=== PATIENT | female | born 1965 | race Caucasian/White ===

== ENCOUNTER 2016-07-02 21:41 | Emergency (ER) | payer BC, OTHER ==
[~2016-07-02] VITALS: Ht 162.6 cm; Wt 57.6 kg
--- OUTSIDE RECORDS SUMMARY | 2016-07-02 21:48 | XMS REPORT ---
Author Author SUDEEP LUU Organization [employer] Address Unknown Phone Unavailable Care Team Providers Care Molecular Geneticist Name Role Phone SUDEEP LUU CP Unavailable Allergies, Adverse Reactions, Alerts Substance Reaction Event Type N.K.D.A. Info Not Available Non Drug Allergy Problems Problem Type Condition Code Onset Dates Condition Status Assessment Strep throat J02.0 Active Assessment Sore throat J02.9 Active Problem Screening examination for pulmonary tuberculosis V74.1 Active Medications Medication Code System Code Instructions Start Date End Date Status Dosage Lisinopril [facility] [address]-47 20 MG Orally Once a day 1 tablet Hydrocodone-Acetaminophen [facility] [address]-59 7.5-325 MG Orally every 6 hrs 1 tablet as needed Amoxicillin [facility] [address]-83 500 MG Orally every 12 hrs 1 capsule Procedures Procedure Coding System Code Date STREP A ASSAY W/OPTIC CPT-4 86360 November 26, 2015 ROCEPHIN 1 GM (IM) CPT-4 J0696 November 26, 2015 Office Visit, Est Pt., Level 3 CPT-4 44594 November 26, 2015 THER/PROPH/DIAG INJ, SC/IM CPT-4 29702 November 26, 2015 Vital Signs Date/Time: November 26, 2015 Cardiac Monitoring Heart Rate 68 bpm Weight 128.6 lbs Height 64.5 in Blood Pressure Diastolic 82 mmHg Blood Pressure Systolic 132 mmHg Results No Known Results Summary Purpose [employer] Submission
[2016-07-02] MEDS ORDERED: HYDROcodone/APAP 7.5 MG/325 MG (LORTAB, LORCET PLUS) TABLET PO STA (22:51)
[2016-07-02] MEDS ORDERED: CYCLOBENZAPRINE 10 MG (FLEXERIL) TAB PO STA (22:51)
--- NOTE | 2016-07-02 22:57 | ED Upper Extremity ---
General Chief Complaint: Upper Extremity Stated Complaint: SHOULDER,NECK PAIN FROM FALL Nursing Triage Note: States she fell over a curb a week ago S[place] and landed on her rt shoulder and hip. Denies loc or head trauma. States Wed she started having severe rt shoulder pain and it increases with deep breath or movement. States she feels popping coming from sternum Nursing Sepsis Screen: No Definite Risk History of Present Illness Time seen by provider: 22:40 Initial Comments Evaluation for right shoulder, rib and sternum pain. She fell to 06/27/16 landing on her right shoulder. She initially had minimal pain and then yesterday the pain became very intense. She had ibuprofen at 1700. No head injury or loss of consciousness at the time of her fall Onset: other (5 days ago) Severity: moderate (pain 7 out of 10) Pain/Injury Location: right shoulder, right other (ribs, sternum) Method of Injury: fell Modifying Factors: Improves With Immobilization, Improves With Rest, Improves With Other (ibuprofen) Denies numbness, tingling or radicular symptoms in bilateral upper extremities Allergies and Home Medications Allergies Coded Allergies: No Known Drug Allergies (Unverified , 07/02/16) Home Medications Cyclobenzaprine HCl 10 Mg Tablet #15 10 MG PO Q8H PRN PRN SPASMS Prescribed by: PAOLO RODARTE on 07/02/162323 Hydrocodone/Acetaminophen 1 Each Tablet #20 1 EACH PO Q4H PRN PRN PAIN Prescribed by: PAOLO RODARTE on 07/02/162323 Constitutional: no symptoms reported chills EENTM: no symptoms reported see HPI Respiratory: see HPI other (pain in right ribs with deep breathing) Cardiovascular: no symptoms reported see HPI Gastrointestinal: no symptoms reported see HPI Genitourinary: no symptoms reported Musculoskeletal: see HPI joint pain (right shoulder) Skin: no symptoms reported see HPI Past Vzrdjcu-Hkblvw-Lttqkd Hx Patient Social History Alcohol Use: Occasionally Uses Recreational Drug Use: No Smoking Status: Current Everyday Smoker Type Used: Cigarettes 2nd Hand Smoke Exposure: No Recent Foreign Travel: No Contact w/Someone Who Travel: No Recent Infectious Disease Expo: No Recent Hopitalizations: No Immunizations Up To Date Tetanus Booster (TDap): Unknown Seasonal Allergies Seasonal Allergies: No Surgeries HX Surgeries: Yes Surgeries: Gallbladder Respiratory Hx Respiratory Disorders: No Cardiovascular Hx Cardiac Disorders: No Neurological Hx Neurological Disorders: No Reproductive System Hx Reproductive Disorders: No Genitourinary Hx Genitourinary Disorders: No Gastrointestinal Hx Gastrointestinal Disorders: Yes (GERD) Musculoskeletal Hx Musculoskeletal Disorders: Yes Musculoskeletal Disorders: Chronic Back Pain Endocrine Hx Endocrine Disorders: No HEENT HX ENT Disorders: No Cancer Hx Cancer: No Psychosocial Hx Psychiatric Problems: No Blood Transfusions Hx Blood Disorders: No Reviewed Nursing Assessment Reviewed/Agree w Nursing PMH: Yes Physical Exam Vital Signs Vital Sign - Last 12Hours 07/02/16 21:50 Temp 98.2 Pulse 95 Resp 18 B/P 171/87 Pulse Ox 99 Capillary Refill : Less Than 3 Seconds General Appearance: WD/WN no apparent distress HEENT: PERRL/EOMI normal ENT inspection TMs normal pharynx normal Neck: non-tender full range of motion supple normal inspection Cardiovascular: normal peripheral pulses regular rate, rhythm no murmur Respiratory: lungs clear normal breath sounds other (tenderness to palpation right anterior shoulder and right middle ribs, anteriorly. Pain in the right costosternal junction.) Gastrointestinal: normal bowel sounds non tender soft Shoulder: normal inspection no evidence of injury limited ROM (elevation actively to 90 and passively to 110, full internal and neck sternal rotation) pain soft tissue tenderness (right shoulder) Elbow/Forearm: normal inspection, non-tender, no evidence of injury, normal ROM , Right Wrist: Yes normal inspection, Yes non-tender, Yes normal ROM Neurologic/Tendon: normal sensation normal motor functions normal tendon functions Neurologic/Psychiatric: no motor/sensory deficits alert normal mood/affect oriented x 3 Skin: normal color warm/dry other (no ecchymosis, abrasions or swelling to right shoulder or right chest wall.) Lymphatic: no adenopathy (no ecchymosis, abrasions or swelling to right shoulder or right chest wall.) Progress/Results/Core Measures Results/Orders My Orders Orders-PAOLO RODARTE Ribs, Right 2-3 Views (07/02/16 21:57) Shoulder, Right, 3 Views (07/02/16 21:57) Cyclobenzaprine Tablet (Flexeril Tablet) (07/02/16 22:51) Hydrocodone/Apap 7.5/325 Tab (Lortab 7. (07/02/16 22:51) Vital Signs/I&O Vital Sign - Last 12Hours 07/02/16 21:50 Temp 98.2 Pulse 95 Resp 18 B/P 171/87 Pulse Ox 99 Blood Pressure Mean: 115 Progress Note : Time: 22:40 Progress Note Initial evaluation completed, will start with Flexeril 10 mg by mouth and hydrocodone 7.5 mg by mouth. 2315 Slight improvement in pain. Sling applied to right upper extremity, she verbalized understanding to remove several times a day for gentle range of motion. Diagnostic Imaging Diagonstic Imaging: Xray Plain Films/CT/US/NM/MRI: other (right shoulder and right ribs) Comments No fractures or dislocations noted. X-rays essentially normal, no acute abnormalities noted. Reviewed: Reviewed by Me Departure Impression Impression: Primary Impression: Shoulder pain, right Qualified Code: M25.511 - Pain in right shoulder Additional Impression: Chest wall pain Disposition: HOME, SELF-CARE Condition: Stable Departure-Patient Inst. Decision time for Depature: 23:00 Referrals: NO,LOCAL PHYSICIAN (PCP/Family) Primary Care Physician Patient Instructions: How to Use a Shoulder Sling, Pleuritic Chest Pain (DC), Shoulder Pain (DC) Add. Discharge Instructions: All discharge instructions reviewed with patient and/or family. Voiced understanding. Use sling for right shoulder as needed, remove every 4 hours for gentle range of motion to the right shoulder. Ibuprofen 600 mg every 8 hours for pain. Warm moist compresses to right shoulder and ribs. Activity as tolerated. Follow-up with primary care in 3-5 days if no improvement Return to emergency department for increased pain, numbness or tingling and right upper extremity, or difficulty breathing. Scripts Cyclobenzaprine HCl 10 Mg Glheji36 Mg PO Q8H PRN SPASMS #15 TAB Ref 0 Prov:PAOLO RODARTE 07/02/16 Hydrocodone/Acetaminophen (Hydrocodon -Acetaminophen 5-325)1 Each Tablet1 Each PO Q4H PRN PAIN #20 TAB Ref 0 Prov:PAOLO RODARTE 07/02/16 Work/School Note: Work Release Form Date Seen in the Emergency Department: Jul 02, 2016 Return to Work: Jul 06, 2016 Restrictions: No Restrictions PAOLO RODARTE Jul 02, 2016 22:57
[2016-07-02] MEDS ORDERED: CYCL10TA9 PO (23:24)
[2016-07-02] MEDS ORDERED: HYDR-3812 PO (23:24)
[2016-07-02 23:31] VITALS: BP 120/70
--- NOTE | 2016-07-03 07:10 | Diagnostic Imaging Report ---
INDICATION: Right rib pain. FINDINGS: No pneumothorax or hemothorax. No free air beneath the diaphragm. No acute periosteal reaction or bony destructive process found. No rib fracture deformity could be identified. IMPRESSION: No acute-appearing chest wall pathology. Dictated by: Dictated on workstation # [id number]
--- NOTE | 2016-07-03 07:12 | Diagnostic Imaging Report ---
INDICATION: Pain. FINDINGS: No fracture, dislocation, or acute articular incongruity is identified. The visualized adjacent ribs and pleura as well as clavicle unremarkable. IMPRESSION: No acute-appearing abnormality. Dictated by: Dictated on workstation # [id number]
== END 2016-07-02 23:30 | disposition home or self-care (01) ==
LOC: EDUNIT# 21:41 → ER 21:44
DX: M25.511 Pain in right shoulder (principal); R07.89 Other chest pain; F17.210 Nicotine dependence, cigarettes, uncomplicated
CPT/HCPCS: 71100; 73030; 99283

== ENCOUNTER → 2017-07-16 | Outpatient (CLI) | payer BC ==
[~2017-07-16] MED LIST: ACHD5005 PO; CYCL10TA9 PO
--- NOTE | 2017-07-16 13:21 | Diagnostic Imaging Report ---
PROCEDURE: US carotid duplex, bilateral. TECHNIQUE: Multiple real-time grayscale images were obtained over the carotid arteries in various projections, bilaterally. Additional duplex Doppler and color Doppler images were also obtained. INDICATION: Carotid bruit. COMPARISON: There are no prior studies available for comparison. FINDINGS: There is hard and soft plaque formation involving both carotid bifurcations, particularly on the left. The flow velocities do suggest that there is a 60-70% stenosis of the origin of the internal carotid artery on the left. The IC/CC ratio is 2.4. There is no evidence for hemodynamically significant stenosis of the right carotid system. Both vertebral arteries were noted and there was antegrade flow bilaterally. IMPRESSION: 1. There is atherosclerosis disease involving both carotid bifurcations, particularly on the left. There also appears to be a 60-70% stenosis of the origin of the internal carotid artery on the left. If further imaging is desired, then CTA of the neck would be recommended. 2. There is no evidence for hemodynamically significant stenosis of the right carotid system. Parameters based on the consensus panel [place]-Scale and Doppler ultrasound criteria published March 2003, Radiology, Volume 229. DOPPLER (peak systolic velocity M/S Right Left CCA .84 .84 ICA Proximal .64 2.23 ICA Mid .78 1.89 ICA Distal .64 1.04 RATIO .9 2.4 ECA 1.04 1.63 VERT .49 .57 Dictated by: Dictated on workstation # [id number]
== END ==
LOC: RAD 10:44
PROVIDERS: ATTEND Internal Medicine
DX: I65.22 Occlusion and stenosis of left carotid artery (principal); G51.0 Bell's palsy
CPT/HCPCS: 93880

== ENCOUNTER → 2018-06-08 | Outpatient (CLI) | payer BC ==
--- NOTE | 2018-06-08 14:59 | Diagnostic Imaging Report ---
INDICATION: DYSPNEA,CHEST PAIN COMPARISON: None. FINDINGS: Frontal and lateral views of the chest demonstrate normal heart size and pulmonary vascularity. The lungs are clear. There are no signs of infiltrate, pleural effusions or pneumothoraces. The visualized osseous structures show no acute abnormalities. Calcified aortic atherosclerosis is noted. IMPRESSION: 1. No acute process. No signs of infiltrates, effusions or pneumothoraces. Dictated by: Dictated on workstation # [id number]
== END ==
LOC: RAD 14:30
PROVIDERS: ATTEND Internal Medicine
DX: R07.9 Chest pain, unspecified (principal); R06.00 Dyspnea, unspecified
CPT/HCPCS: 71046

== ENCOUNTER → 2018-07-01 | Outpatient (CLI) | payer BC ==
[~2018-07-01] VITALS: Ht 162.6 cm; Wt 77.1 kg
[~2018-07-01] MED LIST changes: +CATHETER FLUSH 10 ML SYR IV PRN
[2018-07-01 08:05] VITALS: BP 170/85
--- NOTE | 2018-07-05 08:44 | STRESS TEST ---
DATE OF SERVICE: 07/01/2018 RESTING AND POST EXERCISE TECHNETIUM-99M TETROFOSMIN SPECT CT IMAGING ORDERING PHYSICIAN: Dr. Grady. PRIMARY PHYSICIAN: Dr. Grady. CLINICAL DIAGNOSIS: shortness of breath. Baseline images were carried out after injection of 10.16 mCi of technetium-99m Tetrofosmin. Exercise was carried out under Dr. Grady's supervision and this part of the study is reported separately by him. After the patient had achieved target heart rate, 30.2 mCi of technetium-99m Tetrofosmin were injected. The exercise was continued for about another minute. Review of images at rest and following stress does not indicate any significant perfusion defects. Gated images show normal global left ventricular systolic function and normal regional wall motion. Left ventricular ejection fraction is calculated to be 69%. Left ventricular end diastolic volume is 51 mL. TID is absent (0.97). CONCLUSIONS: 1. No evidence of any significant myocardial ischemia or infarction, but the patient exhibited low exercise capacity (exercise for 5 minutes in the Jorge protocol). 2. Normal global left ventricular systolic function with an ejection fraction of 69%. 3. Normal regional wall motion. Job ID: [id number] DocumentID: [id number] Dictated Date: 07/05/2018 08:28:37 It Recruiter Date: 07/05/2018 08:44:14 Dictated By: DANNY YANG MD, MA, FACP, FACC,
== END ==
LOC: CARD 06:51
PROVIDERS: ATTEND Internal Medicine
DX: R06.00 Dyspnea, unspecified (principal); R07.9 Chest pain, unspecified
CPT/HCPCS: 78452; 93017

== ENCOUNTER → 2018-09-23 | Outpatient (CLI) | payer BC ==
[~2018-09-23] MED LIST changes: -CATHETER FLUSH 10 ML SYR IV PRN; +RT-ALBUTEROL SULF 2.5 MG/3 ML PRE-MIX VIAL INH ONE
== END ==
LOC: RT 09-19 15:43
PROVIDERS: ATTEND Internal Medicine
DX: J44.9 Chronic obstructive pulmonary disease, unspecified (principal)
CPT/HCPCS: 94060; 94726; 94729

== ENCOUNTER → 2019-01-27 | Outpatient (CLI) | payer BC ==
[~2019-01-27] MED LIST changes: -RT-ALBUTEROL SULF 2.5 MG/3 ML PRE-MIX VIAL INH ONE
--- NOTE | 2019-01-27 14:49 | Diagnostic Imaging Report ---
CLINICAL INDICATION: Patient with difference on blood pressure. Unable to find radial pulse on right side. COMPARISON: Ultrasound of the carotid arteries dated 07/16/2017. EXAM: Real-time carotid Doppler duplex imaging is performed bilaterally. Peak systolic velocity, ICA/CCA peak systolic ratio, spectral analysis, and vascular morphology are studied. FINDINGS: ARTERY VELOCITY Right Left CCA 0.43 m/s 0.78 m/s ICA 0.42 m/s 2.52 m/s ECA 0.38 m/s 2.02 m/s ICA/CCA 0.91 3.21 VERT.ART Retrograde Antegrade There is interval development of retrograde flow involving the right vertebral artery suspected to be related to subclavian steal. There is a parvus tardus waveform involving the right CCA, right ECA, and cervical right ICA concerning for significant proximal stenosis. There are low systolic velocities involving the right carotid artery. There is bilateral carotid artery atherosclerotic disease seen with the left cervical ICA and left ECA affected the most. There are elevated velocities involving the proximal left ICA, mid left ICA, and left ECA of 1.74 m/s, 2.51 m/s and 2.02 m/s, respectively. 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 2: There is parvus tardus waveform of the right carotid arteries with low velocities concerning for severe proximal stenosis. CT angiogram of the head and neck is suggested for further evaluation. 3: There is concern for greater than 70% stenosis, but less than near occlusion involving the mid cervical left ICA. 4: There is at least 50-69% stenosis involving the proximal cervical left ICA and left ECA. Dictated by: Dictated on workstation # [id number]
--- NOTE | 2019-01-27 16:04 | Diagnostic Imaging Report ---
INDICATION: Abnormal recent carotid study raising question of subclavian steal on the right. Correlation is made with carotid Doppler on earlier the same day. FINDINGS: Monophasic waveforms throughout the right upper extremity arterial system are seen. Right subclavian artery as well as the axillary and brachial artery are patent. Radial and ulnar arteries are patent. Velocities are fairly symmetric. No high-grade stenosis or occlusion is seen. IMPRESSION: Predominantly monophasic waveforms, but no high-grade stenosis is detected. Dictated on workstation # [id number]
== END ==
LOC: RAD 11:46
PROVIDERS: ATTEND Internal Medicine
DX: I65.23 Occlusion and stenosis of bilateral carotid arteries (principal); G45.8 Other transient cerebral ischemic attacks and related syndromes
CPT/HCPCS: 93880; 93931

== ENCOUNTER 2019-06-09 09:46 | Emergency (ER) | payer BC ==
[~2019-06-09] VITALS: Ht 160 cm; Wt 73.7 kg
[2019-06-09] MEDS ORDERED: LISI40TA (10:14)
[2019-06-09] MEDS ORDERED: CLOP75TA28 (10:14)
[2019-06-09 10:33] LABS: BASOPHILS % (AUTO) 0 % (0-10); EOSINOPHILS # (AUTO) 0.1 10^3/uL (0.0-0.3); EOSINOPHILS % (AUTO) 1 % (0-10); HEMATOCRIT 40 % (35-52); HEMOGLOBIN 14.3 G/DL (11.5-16.0); LYMPHOCYTES # (AUTO) 1.5 X 10^3 (1.0-4.0); LYMPHOCYTES % (AUTO) 20 % (12-44); MEAN CORPUSCULAR HEMOGLOBIN 36 PG (25-34); MEAN CORPUSCULAR HGB CONC 35 G/DL (32-36); MEAN CORPUSCULAR VOLUME 102 FL (80-99); MONOCYTES # (AUTO) 0.4 X 10^3 (0.0-1.0); MONOCYTES % (AUTO) 6 % (0-12); NEUTROPHILS # (AUTO) 5.4 X 10^3 (1.8-7.8); NEUTROPHILS % (AUTO) 73 % (42-75); PLATELET COUNT 251 10^3/uL (130-400); RED CELL DISTRIBUTION WIDTH 15.8 % (10.0-14.5); WHITE BLOOD COUNT 7.4 10^3/uL (4.3-11.0)
[2019-06-09 10:50] LABS: ALANINE AMINOTRANSFERASE 27 U/L (0-55); ALBUMIN 4.2 GM/DL (3.2-4.5); ALKALINE PHOSPHATASE 88 U/L (40-136); BILIRUBIN,TOTAL 0.5 MG/DL (0.1-1.0); BUN/CREATININE RATIO 14; CALCIUM 9.6 MG/DL (8.5-10.1); CARBON DIOXIDE 21 MMOL/L (21-32); CHLORIDE 105 MMOL/L (98-107); GFR ESTIMATED > 60; GLUCOSE 94 MG/DL (70-105); MAGNESIUM 1.5 MG/DL (1.6-2.4); POTASSIUM 3.5 MMOL/L (3.6-5.0); SODIUM 139 MMOL/L (135-145); TOTAL PROTEIN 7.6 GM/DL (6.4-8.2)
[2019-06-09 11:10] LABS: TSH (THYROID ANALYZER) 1.45 UIU/ML (0.35-4.94)
[2019-06-09] MEDS ORDERED: HYDR25TA4 PO (11:55)
[2019-06-09] MEDS ORDERED: MAGN400T50 PO (11:55)
--- NOTE | 2019-06-09 11:56 | ED Cardiac General ---
History of Present Illness General Chief Complaint: Cardiac/General Problems Stated Complaint: ELEV BP Nursing Triage Note: PT PRESENTS TO ED WITH COMPLAINTS OF HYPERTENSION X SEVERAL DAYS AND FEELING "SPACEY/FOGGY", THIS AM. PT REPORTS SHE HAD CAROTID SX IN JANUARY. Source: patient Exam Limitations: no limitations History of Present Illness Date Seen by Provider: Jun 09, 2019 Time Seen by Provider: 22:13 Initial Comments This 54-year-old woman presents to the emergency room with complaints of hypertension and a "foggy" feeling. She took her usual lisinopril 40 mg this morning. She notes having carotid endarterectomy in January. Dr. 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 She reports having a sinus infection about 3 weeks ago for which she took steroids and antibiotics. Allergies and Home Medications Allergies Coded Allergies: No Known Drug Allergies (Unverified , 07/02/16) Home Medications Cyclobenzaprine HCl 10 Mg Tablet, 10 MG PO Q8H PRN for SPASMS Prescribed by: PAOLO RODARTE on 07/02/16 2324 Hydrochlorothiazide 25 Mg Tablet, 25 MG PO DAILY Prescribed by: CHANTELL DEMARCO on 06/09/19 1155 Hydrocodone Bit/Acetaminophen 1 Each Tablet, 1 EACH PO Q4H PRN for PAIN Prescribed by: PAOLO RODARTE on 07/02/16 2324 Magnesium Oxide 400 Mg Tablet, 400 MG PO BID Prescribed by: CHANTELL DEMARCO on 06/09/19 1155 Patient Home Medication List Home Medication List Reviewed: Yes Review of Systems Review of Systems Constitutional: no symptoms reported EENTM: See HPI Respiratory: No Symptoms Reported Cardiovascular: See HPI Gastrointestinal: No Symptoms Reported Genitourinary: No Symptoms Reported Musculoskeletal: no symptoms reported Skin: no symptoms reported Psychiatric/Neurological: No Symptoms Reported Endocrine: No Symptoms Reported Hematologic/Lymphatic: No Symptoms Reported Past Qyexwjz-Wnshee-Txlsxp Hx Past Med/Social Hx: Reviewed and Corrections made Patient Social History Alcohol Use: Occasionally Uses Recreational Drug Use: No Smoking Status: Current Everyday Smoker Type Used: Cigarettes 2nd Hand Smoke Exposure: No Recent Foreign Travel: No Contact w/Someone Who Travel: No Recent Infectious Disease Expo: No Recent Hopitalizations: No Physical Abuse: No Sexual Abuse: No Mistreated: No Fear: No Immunizations Up To Date Tetanus Booster (TDap): Unknown Seasonal Allergies Seasonal Allergies: No Past Medical History Surgeries: Yes (carotids) Gallbladder, Vascular Surgery (Carotid endarterectomy) Respiratory: No Cardiac: Yes Coronary Artery Disease, Hypertension, Peripheral Vascular Neurological: No : No Reproductive Disorders: No Genitourinary: No Gastrointestinal: Yes (GERD) Musculoskeletal: Yes Chronic Back Pain Endocrine: No Cancer: No Psychosocial: No Blood Disorders: No Physical Exam Vital Signs Vital Signs - First Documented 06/09/19 09:57 Temp 35.8 Pulse 80 Resp 12 B/P (MAP) 201/92 (128) 189/105 (133) Pulse Ox 97 Capillary Refill : Less Than 3 Seconds Height, Weight, BMI Height: 5'4.00" Weight: 170lbs. 0.0oz. 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 Skin: Normal Color, Warm/Dry Progress/Results/Core Measures Results/Orders Lab Results Laboratory Tests Test 06/09/19 10:25 Range/Units White Blood Count 7.4 4.3-11.0 10^3/uL Red Blood Count 3.95 L 4.35-5.85 10^6/uL Hemoglobin 14.3 11.5-16.0 G/DL Hematocrit 40 35-52 % Mean Corpuscular Volume 102 H 80-99 FL Mean Corpuscular Hemoglobin 36 H 25-34 PG Mean Corpuscular Hemoglobin Concent 35 32-36 G/DL Red Cell Distribution Width 15.8 H 10.0-14.5 % Platelet Count 251 130-400 10^3/uL Mean Platelet Volume 10.0 7.4-10.4 FL Neutrophils (%) (Auto) 73 42-75 % Lymphocytes (%) (Auto) 20 12-44 % Monocytes (%) (Auto) 6 0-12 % Eosinophils (%) (Auto) 1 0-10 % Basophils (%) (Auto) 0 0-10 % Neutrophils # (Auto) 5.4 1.8-7.8 X 10^3 Lymphocytes # (Auto) 1.5 1.0-4.0 X 10^3 Monocytes # (Auto) 0.4 0.0-1.0 X 10^3 Eosinophils # (Auto) 0.1 0.0-0.3 10^3/uL Basophils # (Auto) 0.0 0.0-0.1 10^3/uL Sodium Level 139 135-145 MMOL/L Potassium Level 3.5 L 3.6-5.0 MMOL/L Chloride Level 105 98-107 MMOL/L Carbon Dioxide Level 21 21-32 MMOL/L Anion Gap 13 5-14 MMOL/L Blood Urea Nitrogen 10 7-18 MG/DL Creatinine 0.70 0.60-1.30 MG/DL Estimat Glomerular Filtration Rate > 60 BUN/Creatinine Ratio 14 Glucose Level 94 70-105 MG/DL Calcium Level 9.6 8.5-10.1 MG/DL Corrected Calcium 9.4 8.5-10.1 MG/DL Magnesium Level 1.5 L 1.6-2.4 MG/DL Total Bilirubin 0.5 0.1-1.0 MG/DL Aspartate Amino Transf (AST/SGOT) 30 5-34 U/L Alanine Aminotransferase (ALT/SGPT) 27 0-55 U/L Alkaline Phosphatase 88 40-136 U/L B-Type Natriuretic Peptide 44.2 <100.0 PG/ML Total Protein 7.6 6.4-8.2 GM/DL Albumin 4.2 3.2-4.5 GM/DL TSH Garza Testing 1.45 0.35-4.94 UIU/ML My Orders Orders - CHANTELL GAN MD Cbc With Automated Diff (06/09/19 10:23) Comprehensive Metabolic Panel (06/09/19 10:23) Magnesium (06/09/19 10:23) Thyroid Analyzer (06/09/19 10:23) Ed Iv/Invasive Line Start (06/09/19 10:23) BNP (06/09/19 10:25) Vital Signs/I&O 06/09/19 06/09/19 09:57 12:16 Temp 35.8 Pulse 80 85 Resp 12 16 B/P (MAP) 201/92 (128) 186/98 189/105 (133) Pulse Ox 97 100 Blood Pressure Mean: 133 Progress Progress Note : Progress Note Workup was unremarkable. Blood pressure trended down a little bit but not to a satisfactory level. For this reason hydrochlorothiazide was prescribed. Magnesium was slightly low and replacement was prescribed. See discharge instructions. Departure Impression Primary Impression: Hypertension Qualified Codes: I10 - Essential (primary) hypertension Additional Impression: Hypomagnesemia Disposition: HOME, SELF-CARE Condition: Improved Departure-Patient Inst. Decision time for Depature: 11:54 Referrals: LUCAS GRADY DO (PCP/Family) Primary Care Physician Patient Instructions: High Blood Pressure (DC) Add. Discharge Instructions: Continue your current medications as previously prescribed. Add hydrochlorothiazide. Magnesium. Follow-up with your primary care provider early next week to repeat a blood pressure check. In the meantime, return to the emergency room if you have worsening symptoms. All discharge instructions reviewed with patient and/or family. Voiced understanding. Scripts Magnesium Oxide (Magnesium Oxide) 400 Mg Tablet 400 MG PO BID, #10 TAB Prov: CHANTELL GAN MD 06/09/19 Hydrochlorothiazide (Hydrochlorothiazide) 25 Mg Tablet 25 MG PO DAILY, #30 TAB Prov: CHANTELL GAN MD 06/09/19 Copy Copies To 1: LUCAS GRADY JOSHUA T MD Jun 09, 2019 11:56
[2019-06-09 12:16] VITALS: BP 186/98
== END 2019-06-09 12:17 | disposition home or self-care (01) ==
LOC: EDUNIT# 09:46 → ER 09:47
DX: I10 Essential (primary) hypertension (principal); E83.42 Hypomagnesemia; F17.210 Nicotine dependence, cigarettes, uncomplicated
CPT/HCPCS: 36415; 80053; 83735; 83880; 84443; 85025

== ENCOUNTER 2019-07-16 10:54 | Emergency (ER) | payer BC ==
[~2019-07-16] VITALS: Ht 160 cm; Wt 72.2 kg
[~2019-07-16 10:54] MED LIST changes: +CLOP75TA28; +HYDR25TA4 PO; +LISI40TA; +MAGN400T50 PO
[2019-07-16 11:03] VITALS: BP 131/88
[2019-07-16] MEDS ORDERED: viscous lidocaine TOP (11:14)
[2019-07-16] MEDS ORDERED: AMOX500C2 PO (11:14)
--- NOTE | 2019-07-16 11:14 | ED EENT ---
History of Present Illness General Stated Complaint: L SIDE DENTAL PAIN/SWELLING Source: patient Exam Limitations: no limitations History of Present Illness Date Seen by Provider: Jul 16, 2019 Time Seen by Provider: 10:59 Initial Comments Patient presents ER by private conveyance with chief complaint of left lower mandibular dental pain swelling without fever chills nausea vomiting or diarrhea. She has a history of bad teeth area and she's been working on getting her peripheral vascular disease that with by Dr. Reaves. Tylenol yesterday with minimal relief. She's tried topicals. She does not follow with a dentist routinely. Smokes about a half pack to a pack per day and occasionally has alcohol. Allergies and Home Medications Allergies Coded Allergies: No Known Drug Allergies (Unverified , 07/02/16) Home Medications Cyclobenzaprine HCl 10 Mg Tablet, 10 MG PO Q8H PRN for SPASMS Prescribed by: PAOLO RODARTE on 07/02/16 2324 Hydrochlorothiazide 25 Mg Tablet, 25 MG PO DAILY Prescribed by: CHANTELL DEMARCO on 06/09/19 1155 Hydrocodone Bit/Acetaminophen 1 Each Tablet, 1 EACH PO Q4H PRN for PAIN Prescribed by: PAOLO RODARTE on 07/02/16 2324 Magnesium Oxide 400 Mg Tablet, 400 MG PO BID Prescribed by: CHANTELL DEMARCO on 06/09/19 1155 Patient Home Medication List Home Medication List Reviewed: Yes Review of Systems Review of Systems Constitutional: No chills, No diaphoresis Eyes: Denies Blindness, Denies Blurred Vision Ears: Denies Dizziness, Denies Pain Nose: denies clots, denies congestion Mouth: see HPI, pain, swelling Throat: denies pain, denies swelling Respiratory: No cough, No short of breath All Other Systems Reviewed Negative Unless Noted: Yes Past Xcvikxn-Ukgquq-Ykljpo Hx Patient Social History Alcohol Use: Occasionally Uses Alcohol Beverage of Choice: Beer Recreational Drug Use: No Smoking Status: Current Everyday Smoker Type Used: Cigarettes 2nd Hand Smoke Exposure: No Recent Foreign Travel: No Contact w/Someone Who Travel: No Recent Hopitalizations: No Immunizations Up To Date Tetanus Booster (TDap): Unknown Seasonal Allergies Seasonal Allergies: No Past Medical History Surgeries: Yes (carotids) Gallbladder, Vascular Surgery Respiratory: No Cardiac: Yes Coronary Artery Disease, Hypertension, Peripheral Vascular Neurological: No Reproductive Disorders: No Genitourinary: No Gastrointestinal: Yes (GERD) Musculoskeletal: Yes Chronic Back Pain Endocrine: No Cancer: No Psychosocial: No Blood Disorders: No Physical Exam Height, Weight, BMI Height: 5'4.00" Weight: 170lbs. 0.0oz. 77.942978ui; 28.00 BMI Method:Stated General Appearance: WD/WN, mild distress Eyes: bilateral eye normal inspection, bilateral eye PERRL, bilateral eye EOMI Ears: bilateral ear auricle normal, bilateral ear canal normal, bilateral ear TM normal Nose: normal inspection; No active bleeding, No discharge Mouth/Throat: dental tenderness (left lower mandible. No evidence of pointing or fluctuance.), other (extensive dental caries) Neck: full range of motion, supple, normal inspection, tender lateral (Left) Cardiovascular: normal peripheral pulses, regular rate, rhythm Respiratory: no respiratory distress, no accessory muscle use Neurologic/Psychiatric: alert, oriented x 3 Progress/Results/Core Measures Results/Orders My Orders Orders - AIMEE LIPSCOMB Ketorolac Injection (Toradol Injection) (07/16/19 11:15) Lidocaine 2% Viscous 15 Ml (Xylocaine Vi (07/16/19 11:15) Progress Progress Note : Time: 11:11 Progress Note Dental abscess left lower mandible. We have encouraged her to quit smoking. Viscous lidocaine, half dose of Toradol times one. Put her out on amoxicillin. Departure Impression Primary Impression: Dental abscess Additional Impression: Dental caries Disposition: 01 HOME, SELF-CARE Condition: Stable Departure-Patient Inst. Decision time for Depature: 11:12 Referrals: LUCAS ARZOLA DO (PCP/Family) Primary Care Physician Patient Instructions: Dental Pain (DC) Add. Discharge Instructions: Tylenol 1000 mg every 8 hours as needed for pain. 5 cc of viscous lidocaine applied to gauze directly over the socket/pain every 4 hours as needed. Amoxicillin one capsule 3 times a day with food for the next week. Plan to follow up with a dentist. Reduce or quit smoking as this will help you with your healing time. Scripts [viscous lidocaine] 2% No Conflict Check 5 ML TOP Q4H PRN for PAIN-BREAKTHROUGH, #60 ML 0 Refills Prov: AIMEE LIPSCOMB 07/16/19 Amoxicillin (Amoxicillin) 500 Mg Capsule 500 MG PO TID, #21 CAP 0 Refills Prov: AIMEE LIPSCOMB 07/16/19 AIMEE LIPSCOMB Jul 16, 2019 11:14
[2019-07-16] MEDS ORDERED: LIDOCAINE 2% VISCOUS 15 ML UDC PO ONE (11:15)
[2019-07-16] MEDS ORDERED: KETOROLAC 60 MG/2 ML VIAL IM ONE (11:15)
== END 2019-07-16 11:46 | disposition home or self-care (01) ==
LOC: EDUNIT# 10:54 → ER 10:55
DX: K04.7 Periapical abscess without sinus (principal); K02.9 Dental caries, unspecified; I10 Essential (primary) hypertension; F17.210 Nicotine dependence, cigarettes, uncomplicated
CPT/HCPCS: 99284

== ENCOUNTER 2019-10-27 04:43 | Emergency (ER) | payer BC ==
[~2019-10-27] VITALS: Ht 173 cm; Wt 72.2 kg
[~2019-10-27 04:43] MED LIST changes: +AMOX500C2 PO; +viscous lidocaine TOP
[2019-10-27] MEDS ORDERED: ETOMIDATE IV SOLN 20 MG/10 ML VIAL IV ONE (04:46)
[2019-10-27] MEDS ORDERED: SUCCINYLCHOLINE INJ 100 MG/5 ML SYR INJ ONE (04:46)
--- OUTSIDE RECORDS SUMMARY | 2019-10-27 04:49 | XMS REPORT | Continuity of Care Document ---
Author Organization Unknown Address Unknown Phone Unavailable Allergies Active Description Code Type Severity Reaction Onset Reported/Identified Relationship to Patient Clinical Status Yes No Known Drug Allergies [id number] Drug Allergy Unknown N/A 07/02/2016 Medications There is no data. Problems Date Dx Coded Attending Type Code Diagnosis Diagnosed By 07/02/2016 PAOLO RODARTE Ot F17.210 NICOTINE DEPENDENCE, CIGARETTES, UNCOMPL 07/02/2016 PAOLO RODARTE Ot M25.511 PAIN IN RIGHT SHOULDER 07/02/2016 PAOLO RODARTE Ot R07.89 OTHER CHEST PAIN 07/03/2016 PAOLO RODARTE Ot F17.210 NICOTINE DEPENDENCE, CIGARETTES, UNCOMPL 07/03/2016 PAOLO RODARTE Ot M25.511 PAIN IN RIGHT SHOULDER 07/03/2016 PAOLO RODARTE Ot R07.89 OTHER CHEST PAIN 07/19/2017 CARMELO LIMON, CHANDRA Pedraza Ot G51.0 NOLAND'S PALSY 07/19/2017 CHANDRA RHODES MD Ot I65.22 OCCLUSION AND STENOSIS OF LEFT CAROTID A 07/28/2017 CHANDRA RHODES MD Ot G51.0 NOLAND'S PALSY 07/28/2017 CHANDRA RHODES MD Ot I65.22 OCCLUSION AND STENOSIS OF LEFT CAROTID A 01/29/2018 CHANDRA RHODES MD Ot G51.0 NOLAND'S PALSY 01/29/2018 CHANDRA RHODES MD Ot I65.22 OCCLUSION AND STENOSIS OF LEFT CAROTID A 06/08/2018 Ot R06.00 DYS PNEA, UNSPECIFIED 06/08/2018 Ot R07.9 CHES T PAIN, UNSPECIFIED 06/24/2018 Ot R06.00 DYS PNEA, UNSPECIFIED 06/24/2018 Ot R07.9 CHES T PAIN, UNSPECIFIED 07/18/2018 LUCAS ARZOLA DO Ot R06.00 DYSPNEA, UNSPECIFIED 07/18/2018 LUCAS ARZOLA DO Ot R07.9 CHEST PAIN, UNSPECIFIED 09/27/2018 ARZOLA DO, LUCAS Fan Ot J44.9 CHRONIC OBSTRUCTIVE PULMONARY DISEASE, U 10/06/2018 ARZOLA DO, LUCAS J Ot J44.9 CHRONIC OBSTRUCTIVE PULMONARY DISEASE, U 01/31/2019 ARZOLA DO, LUCAS Fan Ot 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 01/31/2019 ARZOLA DO, LUCAS Fan Ot I65.23 OCCLUSION AND STENOSIS OF BILATERAL LIU 02/02/2019 ARZOLA DO, LUCAS Fan Ot 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 02/02/2019 ARZOLA DO, LUCAS J Ot I65.23 OCCLUSION AND STENOSIS OF BILATERAL LIU 02/09/2019 ARZOLA DO, LUCAS Fan Ot 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 02/09/2019 ARZOLA DO, LUCAS Fan Ot I65.23 OCCLUSION AND STENOSIS OF BILATERAL LIU 06/09/2019 CARMELO LIMON, CHANDRA Pedraza Ot G51.0 NOLAND'S PALSY 06/09/2019 CARMELO LIMON, CHANDRA Pedraza Ot I65.22 OCCLUSION AND STENOSIS OF LEFT CAROTID A 06/09/2019 Ot R06.00 DYS PNEA, UNSPECIFIED 06/09/2019 Ot R07.9 CHES T PAIN, UNSPECIFIED 06/09/2019 ARZOLA DO, LUCAS Fan Ot R06.00 DYSPNEA, UNSPECIFIED 06/09/2019 ARZOLA DO, LUCAS Fan Ot R07.9 CHEST PAIN, UNSPECIFIED 06/09/2019 ARZOLA DO, LUCAS Fan Ot J44.9 CHRONIC OBSTRUCTIVE PULMONARY DISEASE, U 06/09/2019 ARZOLA DO, LUCAS Fan Ot 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 06/09/2019 ARZOLA DO, LUCAS Fan Ot I65.23 OCCLUSION AND STENOSIS OF BILATERAL LIU 06/09/2019 MALIK LIMON, CHANTELL Srivastava Ot E83.42 HYPOMAGNESEMIA 06/09/2019 MALIK LIMON, CHANTELL Srivastava Ot F17.210 NICOTINE DEPENDENCE, CIGARETTES, UNCOMPL 06/09/2019 MALIK LIMON, CHANTELL Srivastava Ot I10 ESSENTIAL (PRIMARY) HYPERTENSION 06/13/2019 MALIK LIMON, CHANTELL Srivastava Ot E83.42 HYPOMAGNESEMIA 06/13/2019 MALIK LIMON, CHANTELL Srivastava Ot F17.210 NICOTINE DEPENDENCE, CIGARETTES, UNCOMPL 06/13/2019 MALIK LIMON, CHANTELL T Ot I10 ESSENTIAL (PRIMARY) HYPERTENSION 07/16/2019 Ot F17.210 NI COTINE DEPENDENCE, CIGARETTES, UNCOMPL 07/16/2019 Ot I10 ESSENT IAL (PRIMARY) HYPERTENSION 07/16/2019 Ot K02.9 DENT AL CARIES, UNSPECIFIED 07/16/2019 Ot K04.7 QAMAR APICAL ABSCESS WITHOUT SINUS 07/16/2019 Ot K08.89 OTH ER SPECIFIED DISORDERS OF TEETH AND S Procedures There is no data. Results Test Result Range Comprehensive metabolic panel - 06/09/19 10:25 Serum or plasma sodium measurement (moles/volume) 139 mmol/L 135-145 Serum or plasma potassium measurement (moles/volume) 3.5 mmol/L 3.6-5.0 Serum or plasma chloride measurement (moles/volume) 105 mmol/L 98-107 Carbon dioxide 21 mmol/L 21-32 Serum or plasma anion gap determination (moles/volume) 13 mmol/L 5-14 Serum or plasma urea nitrogen measurement (mass/volume ) 10 mg/dL 7-18 Serum or plasma creatinine measurement (mass/volume) 0.70 mg/dL 0.60-1.30 Serum or plasma urea nitrogen/creatinine mass ratio 14 NRG Serum or plasma creatinine measurement w ith calculation of estimated glomerular filtration rate > NRG Serum or plasma glucose measurement (mass/volume) 94 mg/dL 70-105 Serum or plasma calcium measurement (mass/volume) 9.6 mg/dL 8.5-10.1 Serum or plasma total bilirubin measurement (mass/volu me) 0.5 mg/dL 0.1-1.0 Serum or plasma alkaline phosphatase edgard surement (enzymatic activity/volume) 88 U/L 40-136 Serum or plasma aspartate aminotransfera se measurement (enzymatic activity/volume) 30 U/L 5-34 Serum or plasma alanine aminotransferase measurement (enzymatic activity/volume) 27 U/L 0-55 Serum or plasma protein measurement (mass/volume) 7.6 g/dL 6.4-8.2 Serum or plasma albumin measurement (mass/volume) 4.2 g/dL 3.2-4.5 CALCIUM CORRECTED 9.4 mg/dL 8.5-10.1 Magnesium - 06/09/19 10:25 Magnesium 1.5 mg/dL 1.6-2.4 Serum or plasma lithium measurement (mol es/volume) - 06/09/19 10:25 BNP PT 44.2 pg/mL <100.0 Serum or plasma thyrotropin measurement by detection limit <=0.05 miu/l (units/volume) - 06/09/19 10:25 Serum or plasma thyrotropin measurement by detection limit <=0.05 miu/l (units/volume) 1.45 u[iU]/mL 0.35-4.94 Complete blood count (CBC) with automate d white blood cell (WBC) differential - 06/09/19 10:25 Blood leukocytes automated count (number/volume) 7.4 10*3/uL 4.3-11.0 Blood erythrocytes automated count (number/volume) 3.95 10*6/uL 4.35-5.85 Venous blood hemoglobin measurement (mass/volume) 14.3 g/dL 11.5-16.0 Blood hematocrit (volume fraction) 40 % 35-52 Automated erythrocyte mean corpuscular volume 102 [foz_us] 80-99 Automated erythrocyte mean corpuscular h emoglobin (mass per erythrocyte) 36 pg 25-34 Automated erythrocyte mean corpuscular h emoglobin concentration measurement (mass/volume) 35 g/dL 32-36 Automated erythrocyte distribution width ratio 15. 8 % 10.0- 14.5 Automated blood platelet count (count/volume) 251 10*3/uL 130-400 Automated blood platelet mean volume measurement 10.0 [foz_us] 7.4-10.4 Automated blood neutrophils/100 leukocytes 73 % 42-75 Automated blood lymphocytes/100 leukocytes 20 % 12-44 Blood monocytes/100 leukocytes 6 % 0-12 Automated blood eosinophils/100 leukocytes 1 % 0-10 Automated blood basophils/100 leukocytes 0 % 0-10 Blood neutrophils automated count (number/volume) 5.4 10*3 1.8-7.8 Blood lymphocytes automated count (number/volume) 1.5 10*3 1.0-4.0 Blood monocytes automated count (number/volume) 0. 4 10*3 0.0-1.0 Automated eosinophil count 0.1 10*3/uL 0 .0-0.3 Automated blood basophil count (count/volume) 0.0 10*3/uL 0.0-0.1 Encounters ACCT No. Visit Date/Time Discharge Status Pt. Type Provider Facility Loc./Unit Complaint [id number] 01/19/2017 16:10:00 01/19/2017 23:59:5 9 CLS Outpatient [facility] [id number] 06/09/2019 09:47:00 12:17:00 DIS Emergency CHANTELL GAN MD [facility] ER ELEV BP [id number] 01/27/2019 11:46:00 23:59:59 CLS Outpatient LUCAS ARZOLA DO [facility] RAD SUBCLAVIAN STEA L SYNDROME, CAROTID ARTERY STENOSIS [id number] 09/23/2018 10:01:00 019 23:59:59 CLS Outpatient LUCAS ARZOLA DO [facility] RT COPD [id number] 07/01/2018 06:51:00 23:59:59 CLS Outpatient LUCAS ARZOLA DO [facility] CARD R06.00, R07.9 D YSPNEA, CHEST PAIN [id number] 06/10/2018 07:00:00 019 23:59:59 CLS Preadmit LUCAS ARZOLA DO [facility] CARD R06.00, R07.9 DYSPNEA, CHEST PAIN [id number] 07/16/2017 10:44:00 018 23:59:59 CLS Outpatient CHANDRA RHODES MD [facility] RAD CAROTID BRUIT [id number] 07/02/2016 21:44:00 017 23:30:00 DIS Emergency PAOLO RODARTE [facility] ER SHOULDER,NECK PAIN FROM FALL [id number] 07/16/2019 10:55:00 Document Registration [id number] 06/08/2018 14:33:00 Document Registration
--- OUTSIDE RECORDS SUMMARY | 2019-10-27 04:49 | XMS REPORT ---
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 [facility] [employer] Address [address] [place] [address] Care Team Providers Care Inspector [employer]ined [employer] Name Role Phone SUDEEP LUU Unavailable Unavailable NO, LOCAL PHYSICIAN Unavailable Unavailable ARPAN OBRIEN Unavailable PAOLO RODARTE Unavailable Unavailable MALIK LIMON, CHANTELL Srivastava Unavailable Unavailable LUCAS ARZOLA DO Unavailable Unavailable MALIK LIMON, CHANTELL Srivastava Unavailable Unavailable CARMELO LIMON, CHANDRA Pedraza Unavailable Unavailable PAOLO RAMOS Unavailable Unavailable DEISI LIMON, AIMEE Fan Unavailable Unavailable Unavailable Unavailable Unavailable Unavailable Allergies Normalized Allergy Reported Date of Reaction(s) Care Provider Facility Allergy Type classification allergen Allergy Onset DA (10 Unclassified No Known Drug 07-02-2016 - no information PAOLO RODARTE Not Available sources.) Allergies (02933) Medications No Information Problems Problem Normalized Date Last Normalized Normalized Provider Fa cility Classification Problem(s) Recorded Problem Problem Sta tus Duration Other nervous Goss's palsy Episodic Active CHANDRA [facility] ia system MD [facility] RHODES disorders (4 Hospital - sources.) [place] ([address]) Chronic Chronic Chronic Active LUCAS [facility] Via obstructive obstructive DO [facility] ARZOLA pulmonary pulmonary Hospital - disease and disease, [place] bronchiectasis unspecified (52459) (3 sources.) Other lower Dyspnea, Episodic Active LUCAS [facility] Via respiratory unspecified DO [facility] ARZOLA disease (5 Hospital - sources.) [place] ([address]) Other Hypomagnesemia Chronic Active CHANTELL [facility] Via nutritional; [facility] GAN endocrine; and Hospital - metabolic [place] disorders (3 (12539) sources.) Substance-rela Nicotine Chronic Active PAOLO RODARTE [facility] Via mamadou disorders dependenceSHILPI (10 sources.) cigarettes, Hospital - uncomplicated [place] (92852) Occlusion or Occlusion and Chronic Active CHANDRA [facility] V ia stenosis of stenosis of MD Sherin RHODES precerebral left carotid [facility] - arteries (8 artery [place] sources.) Translations: (16564) [ OCCLUSION AND STENOSIS OF BILATERAL LIU] Transient Other Chronic Active LUCAS [facility] Via cerebral transient DO [place]in ARZOLA ischemia (4 cerebral Hospital - sources.) ischemic [place] attacks and (08026) related syndromes Other Pain in right Episodic Active PAOLO RODARTE [facility] Via 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 Immunizations The data below is from unstructured sourcesNo immunization records. No Known Immunizations No Known Immunizations Results The data below is from unstructured sourcesNo Known Results No known relevant diagnostic tests, laboratory data and/or discharge summary.No known relevant diagnostic tests, laboratory data and/or discharge summary. Vital Signs The data below is from unstructured sources Vital Response Date/Time Temperature (Fahrenheit) 98.2 degree s F (97.6 - 99.5) 07/02/2016 9:50pm Temperature (Calculated Celsius) 36. 04289 degrees C (36.4 - 37.5) 07/02/2016 9:50pm Temperature Source Tympanic 07/02/2016 9:50pm Pulse Rate (adult) 95 bpm (60 - 90) 07/02/2016 9:50pm Respiratory Rate 18 bpm (12 - 24) 07/02/2016 9:50pm O2 Sat by Pulse Oximetry 99 % (88 - 100) 07/02/2016 9:50pm Blood Pressure 171/87 mm Hg 07/02/2016 9:50pm Blood Pressure Mean 115 mm Hg 07/02/2016 9:50pm Pain Numeric Pain Scale 10-Worst Possible Pain 07/02/2016 10:57pm Height (Feet) 5 feet 06/2016 9:50pm Height (Inches) 4 inches 07/02/2016 9:50pm Height (Calculated Centimeters) 162. 925383 cm 07/02/2016 9:50pm Weight (Pounds) 127 pounds 07/02/2016 9:50pm Weight (Calculated Kilograms) 57.606 232 kilograms 07/02/2016 9:50pm Capillary Refill Capillary Refill Less Than 3 Seconds 07/02/2016 9:50pm Height 5 ft 4 in Weight 127 lb Body Mass Index 21.8 kg/m^2 Interventions No Information Plan of Treatment The data below is from unstructured sources Discharge Date 07/02/16 11:30pm Disposition 01 HOME, SELF-CARE Condition at Discharge Stable Instructions/Education Provided Pleu ritic Chest Pain (DC) Shoulder Pain (DC) How to Use a Shoulder Sling Forms Provided Work Release Form Prescriptions See Medication Section Referrals NO,LOCAL PHYSICIAN - [facility] Physician Additional Instructions/Education Al l discharge instructions reviewed with patient and/or family. Voiced understanding. Use sling for right shoulder as needed, remove every 4 hours for gentle range of motion to the right shoulder. Ibuprofen 600 mg every 8 hours for pain. Warm moist compresses to right shoulder and ribs. Activity as tolerated. Follow-up with primary care in 3-5 days if no improvement Return to emergency department for increased pain, numbness or tingling and right upper extremity, or difficulty breathing. Activity Details Follow Up 3 Months Reason:CHM Activity Details Follow Up 3 Months Reason:CHM Goals No Information Social History No Information Functional Status The data below is from unstructured sourcesNo functional status results. Mental Status No Information Encounters Encounter Normalized Encounter Encounter Diagnosis Care Provi shadi Organization Date Type 07-16-2019 Emergency department no information AIMEE LIPSCOMB MD (no [facility] - patient visit phone) [facility] 07-16-2019 (no phone) 06-09-2019 Emergency department no information CHANTELL CAMACHO [facility] - patient visit (no phone) [facility] 06-09-2019 (no phone) 07-02-2016 Emergency department no information PAOLO DOBBINS (no [facility] - patient visit phone) [facility] 07-02-2016 (no phone) 07-16-2017 Patient encounter no information no name no or ganization name 06-09-2019 Patient encounter no information CHANTELL ACEVES [facility] procedure (no phone) [facility] (no phone) 01-27-2019 Patient encounter no information LUCAS ARZOLA DO [facility] procedure (no phone) [facility] (no phone) 09-23-2018 Patient encounter no information no name no or ganization name procedure 09-23-2018 Patient encounter no information LUCAS ARZOLA DO [facility] procedure (no phone) [facility] (no phone) 09-19-2018 Patient encounter no information no name no or ganization name procedure 07-01-2018 Patient encounter no information no name no or ganization name procedure 07-01-2018 Patient encounter no information LUCAS ARZOLA DO [facility] procedure (no phone) [facility] (no phone) 06-08-2018 Patient encounter no information no name no or ganization name procedure 06-08-2018 Patient encounter no information LUCAS ARZOLA DO [facility] procedure (no phone) [facility] (no phone) 07-16-2017 Patient encounter no information CHANDRA Cook MD [facility] procedure (no phone) [facility] (no phone) 07-02-2016 Patient encounter no information no name no or ganization name procedure Medical Equipment No Information Payers No Information Summary Purpose eClinicalWorks Submission Advance Directives Directive Response Recor ded Date/Time Advance Directives No 9:50pm Organ Donor Yes 07/02/16 9:50pm Resuscitation Status Full Code 07/02/16 9:50pm Discharge Instructions No hospital discharge instructions. Additional Source Comments This clinical document has been generated using [employer] software that has been certified by the Office of the National Coordinator for Health Information Technology (ONC 15.99.04.3023.Diam.31.00.0.088748) and the National Committee for Media Specialist (NCQA, as an eMeasure certified technology). FOR RECORDS PERTAINING TO PATIENTS WHO ARE OR HAVE BEEN ENROLLED IN A CHEMICAL D EPENDENCY/SUBSTANCE ABUSE PROGRAM, SOME INFORMATION MAY BE OMITTED. This clinica l summary was aggregated from multiple sources. Caution should be exercised in using it in the provision of clinical care. This summary normalizes information from multiple sources, and as a consequence, information in this document may ma terially change the coding, format and clinical context of patient data. In alirio tion, data may be omitted in some cases. CLINICAL DECISIONS SHOULD BE BASED ON T HE PRIMARY CLINICAL RECORDS. [employer] provides no warranty or guara ntee of the accuracy or completeness of information in this document.The followi ng information is based on time limited clinical information UNRECOGNIZED CONTENT PROVIDED BELOW FOR UNRECOGNIZED SECTION MEDICAL (GENERAL) HISTORY Type Description Date Medical History hypertension Medical History chronic back pain Surgical History cholecystectomy Surgical History dilatation and curettage
[2019-10-27] MEDS ORDERED: PROPOFOL DRIP (ICU) 100 ML IV ONE (05:05)
[2019-10-27] MEDS ORDERED: LABETALOL INJECTION 200 MG in NS (IVPB) 160 ML IV SCH (05:15)
[2019-10-27] MEDS ORDERED: proPOfol 500 MG/50 ML (DIPRIVAN) VIAL IV ONE (05:15)
--- NOTE | 2019-10-27 05:18 | ED Neurological Problem ---
General Stated Complaint: FALL,UNRESPONSIVE Source: EMS Exam Limitations: no limitations History of Present Illness Date Seen by Provider: Oct 27, 2019 Time Seen by Provider: 04:40 Initial Comments Patient presents from home by EMS with chief complaint of altered mental status. Family says she got up to go the bathroom about 3:30 in the morning and fell st riking her head. She was not acting right and some family says she got up and walked back to bed while other family said they had to help her get up because she was nonresponsive. When EMS arrived patient had decreased mental status and no response to pain. As they arrived the patient did vomit as they're coming into the ER. She was taken immediately to CAT scan she demonstrated a large bleed in her left parietal frontal lobes. Allergies and Home Medications Allergies Coded Allergies: No Known Drug Allergies (Unverified , 07/02/16) Home Medications Amoxicillin 500 Mg Capsule, 500 MG PO TID Prescribed by: AIMEE LIPSCOMB on 07/16/19 1114 Cyclobenzaprine HCl 10 Mg Tablet, 10 MG PO Q8H PRN for SPASMS Prescribed by: PAOLO RODARTE on 07/02/16 2324 Hydrochlorothiazide 25 Mg Tablet, 25 MG PO DAILY Prescribed by: CHANTELL DEMARCO on 06/09/19 1155 Hydrocodone Bit/Acetaminophen 1 Each Tablet, 1 EACH PO Q4H PRN for PAIN Prescribed by: PAOLO RODARTE on 07/02/16 2324 Magnesium Oxide 400 Mg Tablet, 400 MG PO BID Prescribed by: CHANTELL DEMARCO on 06/09/19 1155 [viscous lidocaine] 2% , 5 ML TOP Q4H PRN for PAIN-BREAKTHROUGH Prescribed by: AIMEE LIPSCOMB on 07/16/19 1114 Patient Home Medication List Home Medication List Reviewed: Yes Review of Systems Review of Systems Constitutional: see HPI (patient does not contribute anything to history or review of systems. Family denies a patient's had no fever chills cough or shortness of breath recently); No fever, No malaise Respiratory: No cough, No short of breath Cardiovascular: No chest pain, No palpitations Gastrointestinal: No abdominal pain, No nausea Genitourinary: No discharge, No dysuria All Other Systems Reviewed Negative Unless Noted: Yes Past Igkroxf-Uiylru-Ockqfs Hx Patient Social History Alcohol Use: Regular Use Alcohol Beverage of Choice: Beer Recreational Drug Use: No Smoking Status: Current Everyday Smoker Type Used: Cigarettes 2nd Hand Smoke Exposure: No Recent Hopitalizations: No Immunizations Up To Date Tetanus Booster (TDap): Unknown Seasonal Allergies Seasonal Allergies: No Past Medical History Surgeries: Yes (carotids) Gallbladder, Vascular Surgery Respiratory: No Cardiac: Yes Coronary Artery Disease, Hypertension, Peripheral Vascular Neurological: No Reproductive Disorders: No Genitourinary: No Gastrointestinal: Yes (GERD) Musculoskeletal: Yes Chronic Back Pain Endocrine: No Cancer: No Psychosocial: No Integumentary: No Blood Disorders: No Physical Exam Vital Signs Vital Signs - First Documented 10/27/19 10/27/19 10/27/19 04:45 05:57 06:35 Temp 36.8 Pulse 60 Resp 28 B/P (MAP) 203/128 (153) Pulse Ox 100 O2 Delivery Mechanical Ventilator FiO2 60 Capillary Refill : Height, Weight, BMI Height: 5'4.00" Weight: 170lbs. 0.0oz. [id number]; 28.00 BMI Method:Stated General Appearance: severe distress, other (vomit on her) HEENT: PERRL/EOMI (3 mm bilat), TMs normal, other (Emesis in the oropharynx) Neck: non-tender, full range of motion Respiratory: lungs clear, normal breath sounds, no respiratory distress, no a ccessory muscle use Cardiovascular: normal peripheral pulses, regular rate, rhythm Peripheral Pulses: 2+ Radial Pulses (R), 2+ Radial Pulses (L) Gastrointestinal: normal bowel sounds, non tender, soft Procedures/Interventions Reason for Intubation: GCS 3 Date of ETT Placement: Oct 27, 2019 Time of ETT Placement: 04:58 Intubation Method: orotracheal Tube Size: 7.5 Medications: Etomidate (20 mg), Succinylcholine (50 mg) Positive End Tide CO2: Yes (fogged the tube) Breath Sounds after Intubation: bilateral-equal Intubation Complications: other (emesis visualized at the larynx.) Post Intubation Xray: Yes ET tube in good position Etomidate followed by succinylcholine. Patient was elevated at 22 at the teeth with positive color change on the colorimetric capnography paper. End-tidal CO2 red 32. 7.5 tube was placed. Bilateral breath sounds were equal, symmetric. Progress/Results/Core Measures Results/Orders Lab Results Laboratory Tests Test 10/27/19 05:07 10/27/19 05:16 Range/Units Urine Color YELLOW Urine Clarity CLEAR Urine pH 5.5 5-9 Urine Specific Jal 1.020 1.016-1.022 Urine Protein NEGATIVE NEGATIVE Urine Glucose (UA) NEGATIVE NEGATIVE Urine Ketones NEGATIVE NEGATIVE Urine Nitrite NEGATIVE NEGATIVE Urine Bilirubin NEGATIVE NEGATIVE Urine Urobilinogen 0.2 < = 1.0 MG/DL Urine Leukocyte Esterase NEGATIVE NEGATIVE Urine RBC (Auto) NEGATIVE NEGATIVE Urine RBC NONE /HPF Urine WBC NONE /HPF Urine Squamous Epithelial Cells RARE /HPF Urine Crystals NONE /LPF Urine Bacteria NEGATIVE /HPF Urine Casts NONE /LPF Urine Mucus NEGATIVE /LPF Urine Culture Indicated NO White Blood Count 17.3 H 4.3-11.0 10^3/uL Red Blood Count 2.99 L 4.35-5.85 10^6/uL Hemoglobin 11.4 L 11.5-16.0 G/DL Hematocrit 33 L 35-52 % Mean Corpuscular Volume 110 H 80-99 FL Mean Corpuscular Hemoglobin 38 H 25-34 PG Mean Corpuscular Hemoglobin Concent 35 32-36 G/DL Red Cell Distribution Width 15.3 H 10.0-14.5 % Platelet Count 343 130-400 10^3/uL Mean Platelet Volume 10.3 7.4-10.4 FL Neutrophils (%) (Auto) 71 42-75 % Lymphocytes (%) (Auto) 21 12-44 % Monocytes (%) (Auto) 6 0-12 % Eosinophils (%) (Auto) 2 0-10 % Basophils (%) (Auto) 0 0-10 % Neutrophils # (Auto) 12.2 H 1.8-7.8 X 10^3 Lymphocytes # (Auto) 3.7 1.0-4.0 X 10^3 Monocytes # (Auto) 1.0 0.0-1.0 X 10^3 Eosinophils # (Auto) 0.4 H 0.0-0.3 10^3/uL Basophils # (Auto) 0.0 0.0-0.1 10^3/uL Neutrophils % (Manual) 64 % Lymphocytes % (Manual) 27 % Monocytes % (Manual) 5 % Eosinophils % (Manual) 1 % Band Neutrophils 3 % Macrocytosis MARKED Prothrombin Time 13.2 12.2-14.7 SEC INR Comment 1.0 0.8-1.4 Activated Partial Thromboplast Time 23 L 24-35 SEC D-Dimer 0.60 H 0.00-0.49 UG/ML Sodium Level 140 135-145 MMOL/L Potassium Level 3.6 3.6-5.0 MMOL/L Chloride Level 110 H 98-107 MMOL/L Carbon Dioxide Level 18 L 21-32 MMOL/L Anion Gap 12 5-14 MMOL/L Blood Urea Nitrogen 11 7-18 MG/DL Creatinine 0.93 0.60-1.30 MG/DL Estimat Glomerular Filtration Rate > 60 BUN/Creatinine Ratio 12 Glucose Level 149 H 70-105 MG/DL Calcium Level 8.4 L 8.5-10.1 MG/DL Corrected Calcium 8.8 8.5-10.1 MG/DL Total Bilirubin 0.3 0.1-1.0 MG/DL Aspartate Amino Transf (AST/SGOT) 43 H 5-34 U/L Alanine Aminotransferase (ALT/SGPT) 25 0-55 U/L Alkaline Phosphatase 76 40-136 U/L Troponin I < 0.028 <0.028 NG/ML Total Protein 6.3 L 6.4-8.2 GM/DL Albumin 3.5 3.2-4.5 GM/DL My Orders Orders - AIMEE LIPSCOMB Accucheck Stat ONCE (10/27/19 04:45) Ct Head/Cervical Spine Wo (10/27/19 04:45) Propofol Injection (Diprivan Injection) (10/27/19 05:15) Cbc With Automated Diff (10/27/19 05:03) Protime With Inr (10/27/19 05:03) Partial Thromboplastin Time (10/27/19 05:03) Comprehensive Metabolic Panel (10/27/19 05:03) Fibrin Degradation Products (10/27/19 05:03) Troponin I (10/27/19 05:03) Ua Culture If Indicated (10/27/19 05:03) Chest 1 View, Ap/Pa Only (10/27/19 05:03) Catheter(Urinary) Insert & Ass ,15 (10/27/19 05:03) Ekg Tracing (10/27/19 05:03) Accucheck Stat ONCE (10/27/19 05:03) Ed Iv/Invasive Line Start (10/27/19 05:03) Ed Iv/Invasive Line Start (10/27/19 05:03) Vital Signs Stroke Patient Q15M (10/27/19 05:03) O2 (10/27/19 05:03) Intake & Output 06,14,22 (10/27/19 05:03) Labetalol Injection (Normodyne Injection (10/27/19 05:15) Monitor-Rhythm Ecg Trace Only (10/27/19 05:03) Dysphagia Screening Tool (10/27/19 05:03) Propofol Drip (Icu) (Diprivan Drip (Icu) (10/27/19 05:05) Human Prothrombin Complx(Pcc) (Kcentra K (10/27/19 05:30) Manual Differential (10/27/19 05:16) Ns Iv 1000 Ml (Sodium Chloride 0.9%) (10/27/19 05:34) Ns Iv 500 Ml (Sodium Chloride 0.9%) (10/27/19 05:35) Catheter(Urinary) Insert & Ass 03,15 (10/27/19 06:20) Medications Given in ED Current Medications Medications Dose Ordered Sig/Julianna Route Start Time Stop Time Status Last Admin Dose Admin Propofol 500 mg ONCE ONCE IV 10/27/19 05:15 10/27/19 05:16 DC 10/27/19 05:07 500 MG Prothrombin Complex Concent (Human) 2,000 unit ONCE ONCE IV 10/27/19 05:30 10/27/19 05:31 DC 10/27/19 05:40 2,000 UNIT Sodium Chloride 500 ml @ ud STK-MED ONCE .ROUTE 10/27/19 05:35 10/27/19 05:37 DC 10/27/19 05:43 20 MLS/HR Sodium Chloride 1,000 ml @ ud STK-MED ONCE .ROUTE 10/27/19 05:34 10/27/19 05:36 DC 10/27/19 05:43 999 MLS/HR Vital Signs/I&O 10/27/19 10/27/19 10/27/19 04:45 05:57 06:35 Temp 36.8 Pulse 60 64 62 Resp 28 19 14 B/P (MAP) 203/128 (153) 134/62 Pulse Ox 100 99 O2 Delivery Mechanical Ventilator FiO2 60 Progress Progress Note : Time: 05:30 Progress Note Edin Butterfield, daughter who says that she was called because her mother fell and was unresponsive approximately 0335. She says that about 5 minutes to get to the house and found her unresponsive and vomited a few times. We updated her on the course and plan to ship to [facility]. Nursing staff also spoke to the patient a couple times afterwards. Radiology forwarded images to [facility]. Did not initially activated, but we did have all the services present. Shortly after eating anything and talking to family was decided that this is likely a pressure related intraparenchymal hemorrhage and not trauma related. Initial ECG Impression Date: Oct 27, 2019 Initial ECG Impression Time: 05:28 Initial ECG Rate: 57 Initial ECG Rhythm: Normal Sinus Initial ECG Intervals: Normal Initial ECG Impression: Normal Comment Normal sinus rhythm without clinically relevant ST elevation or depression. Diagnostic Imaging Diagonstic Imaging: Xray Plain Films/CT/US/NM/MRI: chest (1v) Comments [facility], [place] NAME: JANE BROWN MED REC#: [id number] PT STATUS: REG ER : 1965 PHYSICIAN: AIMEE LIPSCOMB MD ADMIT DATE: 10/27/19/ER Signed Date of Exam:10/27/19 CHEST 1 VIEW, AP/PA ONLY Indication: Respiratory failure Portable chest 5:19 AM There is ET tube projects over the trachea. NG tube enters the stomach. Heart size and pulmonary vascularity are normal. Lungs are clear. There are no effusions or pneumothoraces. IMPRESSION: Negative chest Dictated by: Dictated on workstation # [id number] Dict: 10/27/19526 Trans: 10/27/19526 TB [id number] Interpreted by: GARETH BROWN MD Electronically signed by: GARETH BROWN MD 10/27/19526 Reviewed: Reviewed by Me Diagonstic Imaging: CT (without IV contrast) Plain Films/CT/US/NM/MRI: c-spine, head Comments [facility], [place] NAME: JANE BROWN Jeannie MED REC#: [id number] PT STATUS: DEP ER : 1965 PHYSICIAN: AIMEE LIPSCOMB MD ADMIT DATE: 10/27/19/ER Draft Date of Exam:10/27/19 CT HEAD/CERVICAL SPINE WO PROCEDURE: CT head and CT cervical spine without contrast. TECHNIQUE: Multiple contiguous axial images were obtained through the brain and cervical spine without the use of intravenous contrast. Sagittal and coronal reformations through the cervical spine were then performed. Auto Exposure Controls were utilized during the CT exam to meet ALARA standards for radiation dose reduction. INDICATION: Fall, unresponsive No priors There is a very large left hemispheric intraparenchymal hematoma hyperdense in acute with a dominant collection of blood products measuring 4.7 cm transverse by 7.6 cm AP by 5.3 cm cephalocaudal. There is intraventricular extension of blood with effacement and distortion of the contour of the body and of the left lateral ventricle. The midline structures are displaced left to right by about 8 mm. Few additional smaller foci of parenchymal blood in the left posterior parietal and frontal lobes noted. The dominant hematoma on the left is in the medial temporal lobe and involves the basal ganglia and thalamus and caudally is echogenic contiguous with the upper left midbrain. Swelling distorts the contour of the ambient and basilar cisterns which are attenuated but at least contains some CSF. Despite ventricular compression there is some early hydrocephalus in the atria of the bilateral lateral ventricles as well as some ectasia of the temporal horns. No identifiable calvarial fracture deformity and no hemo-sinus. Cervical spine: Body heights maintained, alignment anatomic. No fracture or significant stenosis. IMPRESSION: Large left hemispheric intracerebral hematoma with generalized swelling and likely elevated pressures with left to right shift. Intraventricular blood and early hydrocephalus. Distortion and attenuation of the basilar cisterns. Epicenter of the blood is at the basal ganglier region extending inferomedially into at least the upper left midbrain. Correlation with process such as a hypertension and/or coagulopathy recommended as the appearance of blood is not typical for hemorrhage merely on a otherwise uncomplicated traumatic basis. C-spine: Negative I have spoken with the Emergency Room physician. Dictated on workstation # [id number] Dict: 10/27/19 0634 Trans: 10/27/19 0700 [facility] [id number] Interpreted by: TYLER BURNETTE Electronically signed by: Reviewed: Reviewed by Me Consults : Consulting Physician: ABBE DALE MD Consults Notes 0600: Apprised Dr. Dale of the situation and the initial concerns at a major trauma related to shipping the patient to [facility] which he wholeheartedly agreed with the plan. Critical Care Note Critical Care Start Time: 04:40 Stop Time: 06:35 Total Time (minutes) 115 min Progress There is a very unclear history given on patient's arrival she was taken straight to CT. This provider was unavailable to accompany him as he was engaged with a critical patient already. As she was completing her CT scan this provider did however join him in the CT scan room and took report from EMS. It was decided immediately to intubate the patient. Level I trauma. A large bleed was seen on the CT. Respiratory therapy was summonsed to the ER and the patient was promptly intubated. See intubation note. Ventilator was initiated 490 cc tidal volume, 14 breaths per minute, 60% FiO2. Patient's oxygen sats were in the upper 90s and she had an end-tidal CO2 of 30. Patient's initial blood pressure was 205/133. It was suspected that she had a hypertension related bleed that led to her fall. She does have a large ecchymoses on her right shoulder laterally. CT C-spine was unremarkable. Cruz catheter and NG tube were placed by nursing staff. Propofol was initiated as well as labetalol drip was ordered. Labetalol was never started because once the propofol was given the patient's blood pressure came down to the 160s. Propofol was titrated to blood pressure and her response. Patient was bucking the vent but no other significant neurologic improvement. After the patient was intubated this provider contacted [facility] and initiated transport through [facility]. There are care arrived the patient was packaged and shipped with a good blood pressure oxygen sats. Departure Impression Primary Impression: Spontaneous intraparenchymal intracranial hemorrhage, acute Disposition: 02 XFER SHT-TRM HOSP ([facility]) Condition: Critical Transfer Transfer Reason: Exceeds level of care Time Spoke to Accepting Phy: 05:22 Transfer Progress Notes 0500: Discussed the case with ALMAS Scott and she accepts the patient to [address] Alvina Lakhani at [facility]. Transfer Time: 06:35 Transfer Facility: [facility] Method of Transfer: Air ([facility]) Departure-Patient Inst. Referrals: LUCAS ARZOLA DO (PCP/Family) Primary Care Physician Copy Copies To 1: LUCAS ARZOLA TITUS J Oct 27, 2019 05:18
[2019-10-27 05:25] LABS: BASOPHILS % (AUTO) 0 % (0-10); EOSINOPHILS # (AUTO) 0.4 10^3/uL (0.0-0.3); EOSINOPHILS % (AUTO) 2 % (0-10); HEMATOCRIT 33 % (35-52); HEMOGLOBIN 11.4 G/DL (11.5-16.0); LYMPHOCYTES # (AUTO) 3.7 X 10^3 (1.0-4.0); LYMPHOCYTES % (AUTO) 21 % (12-44); MEAN CORPUSCULAR HEMOGLOBIN 38 PG (25-34); MEAN CORPUSCULAR HGB CONC 35 G/DL (32-36); MEAN CORPUSCULAR VOLUME 110 FL (80-99); MEAN PLATELET VOLUME 10.3 FL (7.4-10.4); MONOCYTES % (AUTO) 6 % (0-12); NEUTROPHILS # (AUTO) 12.2 X 10^3 (1.8-7.8); NEUTROPHILS % (AUTO) 71 % (42-75); PLATELET COUNT 343 10^3/uL (130-400); RED CELL DISTRIBUTION WIDTH 15.3 % (10.0-14.5); WHITE BLOOD COUNT 17.3 10^3/uL (4.3-11.0)
[2019-10-27 05:26] LABS: BILIRUBIN,URINE NEGATIVE (NEGATIVE); CLARITY,URINE CLEAR; COLOR,URINE YELLOW; GLUCOSE, URINE (UA) NEGATIVE (NEGATIVE); KETONES,URINE NEGATIVE (NEGATIVE); LEUKOCYTE ESTERASE ,URINE NEGATIVE (NEGATIVE); NITRITE,URINE NEGATIVE (NEGATIVE); PH,URINE 5.5 (5-9); PROTEIN,URINE NEGATIVE (NEGATIVE)
--- NOTE | 2019-10-27 05:29 | Diagnostic Imaging Report ---
Indication: Respiratory failure Portable chest 5:19 AM There is ET tube projects over the trachea. NG tube enters the stomach. Heart size and pulmonary vascularity are normal. Lungs are clear. There are no effusions or pneumothoraces. IMPRESSION: Negative chest Dictated by: Dictated on workstation # [id number]
[2019-10-27] MEDS ORDERED: HUMAN PROTHROMBIN COMPLX(PCC) 500 UNIT (KCENTRA) IV ONE (05:30)
[2019-10-27] MEDS ORDERED: NS IV 1000 ML 1,000 ML ONE (05:34)
[2019-10-27] MEDS ORDERED: NS IV 500 ML 500 ML ONE (05:35)
[2019-10-27 05:37] LABS: BACTERIA,URINE NEGATIVE /HPF; SQUAMOUS EPITHELIAL CELL,UR RARE /HPF
[2019-10-27 05:42] LABS: FIBRIN DEGRADATION PRODUCTS 0.6 UG/ML (0.00-0.49); PROTHROMBIN TIME PATIENT 13.2 SEC (12.2-14.7)
[2019-10-27 05:44] LABS: BAND NEUTROPHILS 3 %; EOSINOPHILS % (MANUAL) 1 %; LYMPHOCYTES % (MANUAL) 27 %; MONOCYTES % (MANUAL) 5 %; NEUTROPHILS % (MANUAL) 64 %
[2019-10-27 05:47] LABS: ALANINE AMINOTRANSFERASE 25 U/L (0-55); ALBUMIN 3.5 GM/DL (3.2-4.5); ALKALINE PHOSPHATASE 76 U/L (40-136); BILIRUBIN,TOTAL 0.3 MG/DL (0.1-1.0); BUN/CREATININE RATIO 12; CALCIUM 8.4 MG/DL (8.5-10.1); CARBON DIOXIDE 18 MMOL/L (21-32); CHLORIDE 110 MMOL/L (98-107); CREATININE SERUM 0.93 MG/DL (0.60-1.30); GFR ESTIMATED > 60; GLUCOSE 149 MG/DL (70-105); POTASSIUM 3.6 MMOL/L (3.6-5.0); SODIUM 140 MMOL/L (135-145); TOTAL PROTEIN 6.3 GM/DL (6.4-8.2)
[2019-10-27 06:35] VITALS: BP 134/62
--- NOTE | 2019-10-27 06:35 | NUR ---
0454 - Etomidate 20MG given 0455 - 50mg Succs given 0458 - Patient intubated at this time by Dr. Almanza x 1 attempt. Patient intubated with 7.5 ET tube, color change was observed and bilateral breath sounds ausculated. ET tube secured in the center of the mouth, measuring 22cm at the teeth.
--- NOTE | 2019-10-27 07:02 | Diagnostic Imaging Report ---
PROCEDURE: CT head and CT cervical spine without contrast. TECHNIQUE: Multiple contiguous axial images were obtained through the brain and cervical spine without the use of intravenous contrast. Sagittal and coronal reformations through the cervical spine were then performed. Auto Exposure Controls were utilized during the CT exam to meet ALARA standards for radiation dose reduction. INDICATION: Fall, unresponsive No priors There is a very large left hemispheric intraparenchymal hematoma hyperdense in acute with a dominant collection of blood products measuring 4.7 cm transverse by 7.6 cm AP by 5.3 cm cephalocaudal. There is intraventricular extension of blood with effacement and distortion of the contour of the body and of the left lateral ventricle. The midline structures are displaced left to right by about 8 mm. Few additional smaller foci of parenchymal blood in the left posterior parietal and frontal lobes noted. The dominant hematoma on the left is in the medial temporal lobe and involves the basal ganglia and thalamus and caudally is echogenic contiguous with the upper left midbrain. Swelling distorts the contour of the ambient and basilar cisterns which are attenuated but at least contains some CSF. Despite ventricular compression there is some early hydrocephalus in the atria of the bilateral lateral ventricles as well as some ectasia of the temporal horns. No identifiable calvarial fracture deformity and no hemo-sinus. Cervical spine: Body heights maintained, alignment anatomic. No fracture or significant stenosis. IMPRESSION: Large left hemispheric intracerebral hematoma with generalized swelling and likely elevated pressures with left to right shift. Intraventricular blood and early hydrocephalus. Distortion and attenuation of the basilar cisterns. Epicenter of the blood is at the basal ganglier region extending inferomedially into at least the upper left midbrain. Correlation with process such as a hypertension and/or coagulopathy recommended as the appearance of blood is not typical for hemorrhage merely on a otherwise uncomplicated traumatic basis. C-spine: Negative I have spoken with the Emergency Room physician. Dictated by: Dictated on workstation # [id number]
== END 2019-10-27 06:35 | disposition short-term general hospital (02) ==
LOC: EDUNIT# 04:43 → ER 04:45
DX: S06.2X9A Diffuse traumatic brain injury with loss of consciousness of unspecified duration, initial encounter (principal); F17.210 Nicotine dependence, cigarettes, uncomplicated; I10 Essential (primary) hypertension; G89.29 Other chronic pain; M54.9 Dorsalgia, unspecified; Z79.891 Long term (current) use of opiate analgesic; W19.XXXA Unspecified fall, initial encounter; W22.8XXA Striking against or struck by other objects, initial encounter
CPT/HCPCS: 31500; 36415; 51702; 70450; 71045; 72125; 80053; 81000; 84484; 85007; 85027; 85379; 85610; 85730; 93005; 93041; 94002; 99291